=== PATIENT | male | born 1945 | race Caucasian/White ===

== ENCOUNTER 2024-09-11 15:05 | Emergency (ER) | payer SELFPAY ==
[2024-09-11 15:25] VITALS: BP 171/88
--- NOTE | 2024-09-11 16:38 | EDRN ---
Dr. Malone in room w/pt at this time discussing CT scan results at this time.
[2024-09-11 16:47] VITALS: BMI 22.1
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
--- NOTE | 2024-09-11 17:18 | CM ---
CM spoke with patient's who stated that there are no family members to assist with her care. CM spoke with patient. Patient called a friend who is able to check on during the say. Patient stated he does not feel VN is needed at this time.
Patient is now agreeable to transfer to [place]. CM updated bedside RN and ED physician Dr. Malone.
--- NOTE | 2024-09-11 17:53 | EDRN ---
Dr. Malone in w/ pt.
[2024-09-11 18:00] VITALS: BP 168/84
[2024-09-11] MEDS: DECADRON 10 MG PO (18:32)
[2024-09-11 18:41] LABS: % Basophils 0.3 % (0-2); % Eosinophils 0.2 % (0-6); % Immature Granulocytes 0.9 % (0-0.5); % Monocytes 3.8 % (1.7-9.3); % Neutrophils 90.8 % (42.2-75.2); Absolute Immature Granulocytes 0.1 10^3/uL (0-0.05); Absolute Lymphocytes 0.6 10^3/uL (1.2-3.4); Absolute Monocytes 0.5 10^3/uL (0.1-0.6); Hematocrit 43.2 % (39.0-52.0); Hemoglobin 14.8 g/dL (13.0-18.0); Mean Corp Hgb Conc. 34.3 g/dL (33.0-37.0); Mean Corpuscular Hgb 31.7 pg (27.0-31.0); Mean Corpuscular Volume 92.5 fL (80.0-94.0); Nucleated Red Blood Cells % 0 % (-); Platelet Count 218 10^3/uL (130-400); Red Blood Cell Count 4.67 10^6/uL (4.70-6.10); Red Cell Dist. Width 12.2 % (11.5-14.5); White Blood Cell Count 14.3 10^3/uL (4.8-10.8)
[2024-09-11 18:54] LABS: ALT (SGPT) 19 U/L (0-50); AST (SGOT) 27 U/L (17-59); Albumin 4.2 g/dl (3.5-5.0); Alkaline Phosphatase 76 U/L (38-126); Blood Urea Nitrogen 18 mg/dl (9-20); Calcium 9.1 mg/dl (8.4-10.2); Carbon Dioxide 30 mmol/L (22-30); Chloride 102 mmol/L (98-107); Estimated Creatinine Clearance 89 ml/min; Glucose 111 mg/dl (70-99); Potassium 4.1 mmol/L (3.5-5.1); Sodium 141 mmol/L (135-145); Total Bilirubin 0.5 mg/dl (0.2-1.3); Total Protein 6.4 g/dl (6.3-8.2); eGFR > 60.00
[2024-09-11 19:00] VITALS: BP 155/83
--- NOTE | 2024-09-11 19:34 | EDRN ---
Dr. Malone in room w/ pt at this time.
--- NOTE | 2024-09-11 19:37 | EDRN ---
Dr. Malone was in to see pt at this time.
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
[2024-09-11 20:00] VITALS: BP 166/60
--- NOTE | 2024-09-11 20:16 | EDRN ---
Attempting to call report to ICU for bed 2022 at [facility] at this time.
--- NOTE | 2024-09-11 20:24 | EDRN ---
Unable to call report as no one answered in ICU, recalling to give report at this time. Awaiting pt's nurse to come to phone at this time.
--- NOTE | 2024-09-11 20:35 | EDRN ---
Report called to Lizette Corley RN at [facility] at this time.
== END 2024-09-11 20:35 | disposition short-term general hospital (02) ==
LOC: EMR 15:05
PROVIDERS: EMERGENCY PHYSICIAN Emergency Medicine
DX: D49.6 Neoplasm of unspecified behavior of brain (principal); S61.412A Laceration without foreign body of left hand, initial encounter; R07.9 Chest pain, unspecified; V89.2XXA Person injured in unspecified motor-vehicle accident, traffic, initial encounter; Z87.891 Personal history of nicotine dependence
CPT/HCPCS: 99291; 70450; 71046; 80053; 85025; 93005

== ENCOUNTER → 2024-11-13 08:25 | Outpatient (REF) | payer OTHER, SELFPAY ==
[2024-11-13 08:48] VITALS: BP 143/81; BP_SYST 92
[2024-11-13] MEDS: ANCEF 10 IV (09:32)
[2024-11-13 10:28] VITALS: BP 140/77; BP_SYST 86
== END ==
LOC: RADI 08:25
PROVIDERS: ATTENDING PHYSICIAN Internal Medicine Hematology & Oncology; FAMILY PHYSICIAN Internal Medicine Geriatric Medicine
DX: C34.11 Malignant neoplasm of upper lobe, right bronchus or lung (principal)
CPT/HCPCS: 36561; 76937; 77001; 99152; 99153; C1788

== ENCOUNTER → 2024-12-01 11:29 | Outpatient (REF) | payer OTHER, SELFPAY ==
[2024-12-01 12:31] LABS: % Basophils 0.6 % (0-2); % Eosinophils 0.6 % (0-6); % Immature Granulocytes 1.6 % (0-0.5); % Lymphocytes 14.5 % (20.5-51.1); % Monocytes 7.4 % (1.7-9.3); % Neutrophils 75.3 % (42.2-75.2); Absolute Immature Granulocytes 0.1 10^3/uL (0-0.05); Absolute Monocytes 0.5 10^3/uL (0.1-0.6); Absolute Neutrophils 5.1 10^3/uL (1.4-6.5); Hematocrit 41.1 % (39.0-52.0); Hemoglobin 12.8 g/dL (13.0-18.0); Mean Corp Hgb Conc. 31.1 g/dL (33.0-37.0); Mean Corpuscular Hgb 29.7 pg (27.0-31.0); Mean Corpuscular Volume 95.4 fL (80.0-94.0); Mean Platelet Volume 9.3 fL (7.4-10.4); Nucleated Red Blood Cells % 0 % (-); Platelet Count 328 10^3/uL (130-400); Red Blood Cell Count 4.31 10^6/uL (4.70-6.10); Red Cell Dist. Width 14.6 % (11.5-14.5); White Blood Cell Count 6.8 10^3/uL (4.8-10.8)
[2024-12-01 13:13] LABS: ALT (SGPT) 15 U/L (0-50); AST (SGOT) 20 U/L (17-59); Albumin 3.8 g/dl (3.5-5.0); Alkaline Phosphatase 121 U/L (38-126); Blood Urea Nitrogen 15 mg/dl (9-20); Calcium 9.5 mg/dl (8.4-10.2); Carbon Dioxide 33 mmol/L (22-30); Chloride 99 mmol/L (98-107); Glucose 95 mg/dl (70-99); Sodium 139 mmol/L (135-145); Total Bilirubin 0.4 mg/dl (0.2-1.3); Total Protein 6.5 g/dl (6.3-8.2); eGFR > 60.00
[2024-12-01 13:43] LABS: TSH Reflex To Free T4 0.23 uIU/ml (0.47-4.68)
[2024-12-01 14:13] LABS: Free T4 0.91 ng/dl (0.78-2.19)
== END ==
LOC: REG 11:29
PROVIDERS: ATTENDING PHYSICIAN Internal Medicine Hematology & Oncology; FAMILY PHYSICIAN Internal Medicine
DX: C34.11 Malignant neoplasm of upper lobe, right bronchus or lung (principal); C79.31 Secondary malignant neoplasm of brain
CPT/HCPCS: 36415; 80053; 84439; 84443; 85025

== ENCOUNTER → 2024-12-22 09:59 | Outpatient (REF) | payer OTHER, SELFPAY ==
[2024-12-22 11:18] LABS: Hematocrit 37.4 % (39.0-52.0); Mean Corp Hgb Conc. 32.1 g/dL (33.0-37.0); Mean Corpuscular Hgb 30.2 pg (27.0-31.0); Mean Corpuscular Volume 94.2 fL (80.0-94.0); Platelet Count 444 10^3/uL (130-400); Red Blood Cell Count 3.97 10^6/uL (4.70-6.10); Red Cell Dist. Width 15.5 % (11.5-14.5); White Blood Cell Count 11.2 10^3/uL (4.8-10.8)
[2024-12-22 13:52] LABS: % Basophils 1.1 % (0-2); % Eosinophils 0.7 % (0-6); % Immature Granulocytes 7.4 % (0-0.5); % Lymphocytes 10.3 % (20.5-51.1); % Monocytes 7.2 % (1.7-9.3); % Neutrophils 73.3 % (42.2-75.2); Absolute Basophils 0.1 10^3/uL (0-0.2); Absolute Eosinophils 0.1 10^3/uL (0-0.7); Absolute Immature Granulocytes 0.8 10^3/uL (0-0.05); Absolute Lymphocytes 1.2 10^3/uL (1.2-3.4); Absolute Monocytes 0.8 10^3/uL (0.1-0.6); Absolute Neutrophils 8.2 10^3/uL (1.4-6.5); Nucleated Red Blood Cells % 0 % (-)
== END ==
LOC: REG 09:59
PROVIDERS: ATTENDING PHYSICIAN Internal Medicine Hematology & Oncology; FAMILY PHYSICIAN Nurse Practitioner Family
DX: C34.11 Malignant neoplasm of upper lobe, right bronchus or lung (principal); C79.31 Secondary malignant neoplasm of brain
CPT/HCPCS: 36415; 85025

== ENCOUNTER → 2024-12-23 11:44 | Outpatient (REF) | payer OTHER, SELFPAY ==
[2024-12-23 11:49] LABS: % Basophils 0.2 % (0-2); % Immature Granulocytes 5.3 % (0-0.5); % Lymphocytes 3.1 % (20.5-51.1); % Monocytes 1.1 % (1.7-9.3); % Neutrophils 90.3 % (42.2-75.2); Absolute Immature Granulocytes 0.7 10^3/uL (0-0.05); Absolute Lymphocytes 0.4 10^3/uL (1.2-3.4); Absolute Monocytes 0.2 10^3/uL (0.1-0.6); Absolute Neutrophils 12.2 10^3/uL (1.4-6.5); Hematocrit 37.2 % (39.0-52.0); Hemoglobin 12.1 g/dL (13.0-18.0); Mean Corp Hgb Conc. 32.5 g/dL (33.0-37.0); Mean Corpuscular Volume 92.1 fL (80.0-94.0); Mean Platelet Volume 8.7 fL (7.4-10.4); Platelet Count 481 10^3/uL (130-400); Red Blood Cell Count 4.04 10^6/uL (4.70-6.10); Red Cell Dist. Width 15.1 % (11.5-14.5); White Blood Cell Count 13.5 10^3/uL (4.8-10.8)
[2024-12-23 12:16] LABS: ALT (SGPT) 13 U/L (0-50); AST (SGOT) 19 U/L (17-59); Albumin 3.9 g/dl (3.5-5.0); Alkaline Phosphatase 141 U/L (38-126); Blood Urea Nitrogen 16 mg/dl (9-20); Calcium 9.2 mg/dl (8.4-10.2); Carbon Dioxide 27 mmol/L (22-30); Chloride 101 mmol/L (98-107); Glucose 132 mg/dl (70-99); Sodium 136 mmol/L (135-145); Total Bilirubin 0.2 mg/dl (0.2-1.3); Total Protein 6.3 g/dl (6.3-8.2); eGFR > 60.00
[2024-12-23 12:49] LABS: TSH Reflex To Free T4 0.17 uIU/ml (0.47-4.68)
== END ==
LOC: OIDL 11:44
PROVIDERS: ATTENDING PHYSICIAN Internal Medicine Hematology & Oncology
DX: C34.11 Malignant neoplasm of upper lobe, right bronchus or lung (principal)
CPT/HCPCS: 80053; 84439; 84443; 85025

== ENCOUNTER → 2025-01-12 10:45 | Outpatient (REF) | payer OTHER, SELFPAY ==
[2025-01-12 11:19] LABS: Hematocrit 37.7 % (39.0-52.0); Mean Corp Hgb Conc. 31.8 g/dL (33.0-37.0); Mean Corpuscular Hgb 30.3 pg (27.0-31.0); Mean Corpuscular Volume 95.2 fL (80.0-94.0); Mean Platelet Volume 9.3 fL (7.4-10.4); Platelet Count 247 10^3/uL (130-400); Red Blood Cell Count 3.96 10^6/uL (4.70-6.10); Red Cell Dist. Width 16.4 % (11.5-14.5); White Blood Cell Count 10.4 10^3/uL (4.8-10.8)
[2025-01-12 11:38] LABS: Absolute Neutrophils -Man Diff 7.3 10^3/uL (1.4-6.5); Band Neutrophils 0 % (0-3); Eosinophils 2 % (0-6); Lymphocytes 21 % (20-51); Monocytes 4 % (2-9); Myelocytes 2 % (-); Platelets Checked Yes; Segmented Neutrophils 71 % (42-75)
[2025-01-12 11:39] LABS: Anisocytosis Slight; Normal RBC Morphology No; Total Cells Counted 100
[2025-01-12 12:21] LABS: TSH Reflex To Free T4 0.49 uIU/ml (0.47-4.68)
[2025-01-12 12:31] LABS: ALT (SGPT) 14 U/L (0-50); AST (SGOT) 20 U/L (17-59); Albumin 3.9 g/dl (3.5-5.0); Alkaline Phosphatase 125 U/L (38-126); Blood Urea Nitrogen 16 mg/dl (9-20); Calcium 9.4 mg/dl (8.4-10.2); Carbon Dioxide 29 mmol/L (22-30); Chloride 101 mmol/L (98-107); Glucose 97 mg/dl (70-99); Potassium 4.5 mmol/L (3.5-5.1); Sodium 137 mmol/L (135-145); Total Bilirubin 0.5 mg/dl (0.2-1.3); Total Protein 6.3 g/dl (6.3-8.2); eGFR > 60.00
[2025-01-12 12:56] LABS: Folate > 20.0 ng/ml (2.76-20); Vitamin B12 > 1000 pg/ml (239-931)
== END ==
LOC: REG 10:45
PROVIDERS: ATTENDING PHYSICIAN Nurse Practitioner Adult Health
DX: C34.11 Malignant neoplasm of upper lobe, right bronchus or lung (principal); C79.31 Secondary malignant neoplasm of brain
CPT/HCPCS: 36415; 80053; 82607; 82746; 84443; 85025

== ENCOUNTER → 2025-02-02 09:14 | Outpatient (REF) | payer OTHER, SELFPAY ==
[2025-02-02 10:00] LABS: % Basophils 0.6 % (0-2); % Immature Granulocytes 3.7 % (0-0.5); % Lymphocytes 11.4 % (20.5-51.1); % Monocytes 8.4 % (1.7-9.3); % Neutrophils 74.9 % (42.2-75.2); Absolute Eosinophils 0.1 10^3/uL (0-0.7); Absolute Immature Granulocytes 0.3 10^3/uL (0-0.05); Absolute Lymphocytes 0.8 10^3/uL (1.2-3.4); Absolute Monocytes 0.6 10^3/uL (0.1-0.6); Absolute Neutrophils 5.1 10^3/uL (1.4-6.5); Hematocrit 37.2 % (39.0-52.0); Hemoglobin 11.9 g/dL (13.0-18.0); Mean Corpuscular Hgb 31.2 pg (27.0-31.0); Mean Corpuscular Volume 97.4 fL (80.0-94.0); Mean Platelet Volume 9.1 fL (7.4-10.4); Nucleated Red Blood Cells % 0 % (-); Platelet Count 246 10^3/uL (130-400); Red Blood Cell Count 3.82 10^6/uL (4.70-6.10); Red Cell Dist. Width 16.7 % (11.5-14.5); White Blood Cell Count 6.8 10^3/uL (4.8-10.8)
[2025-02-02 10:44] LABS: ALT (SGPT) 13 U/L (0-50); AST (SGOT) 18 U/L (17-59); Albumin 3.7 g/dl (3.5-5.0); Alkaline Phosphatase 118 U/L (38-126); Blood Urea Nitrogen 17 mg/dl (9-20); Calcium 9.8 mg/dl (8.4-10.2); Carbon Dioxide 33 mmol/L (22-30); Chloride 100 mmol/L (98-107); Glucose 82 mg/dl (70-99); Potassium 4.5 mmol/L (3.5-5.1); Sodium 139 mmol/L (135-145); Total Bilirubin 0.6 mg/dl (0.2-1.3); Total Protein 6.2 g/dl (6.3-8.2); eGFR > 60.00
[2025-02-02 11:13] LABS: TSH 0.96 uIU/ml (0.47-4.68)
== END ==
LOC: REG 09:14
PROVIDERS: ATTENDING PHYSICIAN Internal Medicine Hematology & Oncology; FAMILY PHYSICIAN Internal Medicine
DX: C34.11 Malignant neoplasm of upper lobe, right bronchus or lung (principal); C79.31 Secondary malignant neoplasm of brain
CPT/HCPCS: 36415; 80053; 84443; 85025

== ENCOUNTER → 2025-02-25 10:51 | Outpatient (REF) | payer OTHER, SELFPAY ==
[2025-02-25 09:37] LABS: % Basophils 0.4 % (0-2); % Eosinophils 0.7 % (0-6); % Immature Granulocytes 1.9 % (0-0.5); % Lymphocytes 9.8 % (20.5-51.1); % Neutrophils 77.2 % (42.2-75.2); Absolute Eosinophils 0.1 10^3/uL (0-0.7); Absolute Immature Granulocytes 0.1 10^3/uL (0-0.05); Absolute Lymphocytes 0.7 10^3/uL (1.2-3.4); Absolute Monocytes 0.7 10^3/uL (0.1-0.6); Absolute Neutrophils 5.7 10^3/uL (1.4-6.5); Hematocrit 34.9 % (39.0-52.0); Hemoglobin 11.1 g/dL (13.0-18.0); Mean Corp Hgb Conc. 31.8 g/dL (33.0-37.0); Mean Corpuscular Hgb 30.7 pg (27.0-31.0); Mean Corpuscular Volume 96.4 fL (80.0-94.0); Mean Platelet Volume 8.7 fL (7.4-10.4); Platelet Count 224 10^3/uL (130-400); Red Blood Cell Count 3.62 10^6/uL (4.70-6.10); Red Cell Dist. Width 15.5 % (11.5-14.5); White Blood Cell Count 7.3 10^3/uL (4.8-10.8)
[2025-02-25 10:41] LABS: ALT (SGPT) 14 U/L (0-50); AST (SGOT) 17 U/L (17-59); Albumin 3.5 g/dl (3.5-5.0); Alkaline Phosphatase 124 U/L (38-126); Blood Urea Nitrogen 11 mg/dl (9-20); Calcium 9.3 mg/dl (8.4-10.2); Carbon Dioxide 32 mmol/L (22-30); Chloride 103 mmol/L (98-107); Glucose 93 mg/dl (70-99); Sodium 142 mmol/L (135-145); Total Bilirubin 0.4 mg/dl (0.2-1.3); Total Protein 5.9 g/dl (6.3-8.2); eGFR > 60.00
[2025-02-25 11:14] LABS: Cortisol, Random 19.7 ug/dl; TSH Reflex To Free T4 1.28 uIU/ml (0.47-4.68)
== END ==
LOC: OIDL 10:51
PROVIDERS: ATTENDING PHYSICIAN Internal Medicine Hematology & Oncology
DX: C34.11 Malignant neoplasm of upper lobe, right bronchus or lung (principal); C79.31 Secondary malignant neoplasm of brain
CPT/HCPCS: 80053; 82533; 84443; 85025

== ENCOUNTER → 2025-03-16 09:36 | Outpatient (REF) | payer OTHER, SELFPAY ==
[2025-03-16 10:21] LABS: % Basophils 0.4 % (0-2); % Eosinophils 2.4 % (0-6); % Lymphocytes 16.4 % (20.5-51.1); % Monocytes 9.1 % (1.7-9.3); % Neutrophils 70.7 % (42.2-75.2); Absolute Eosinophils 0.1 10^3/uL (0-0.7); Absolute Immature Granulocytes 0.1 10^3/uL (0-0.05); Absolute Lymphocytes 0.8 10^3/uL (1.2-3.4); Absolute Monocytes 0.5 10^3/uL (0.1-0.6); Absolute Neutrophils 3.6 10^3/uL (1.4-6.5); Hematocrit 38.5 % (39.0-52.0); Hemoglobin 12.1 g/dL (13.0-18.0); Mean Corp Hgb Conc. 31.4 g/dL (33.0-37.0); Mean Corpuscular Hgb 30.4 pg (27.0-31.0); Mean Corpuscular Volume 96.7 fL (80.0-94.0); Mean Platelet Volume 9.3 fL (7.4-10.4); Nucleated Red Blood Cells % 0 % (-); Platelet Count 171 10^3/uL (130-400); Red Blood Cell Count 3.98 10^6/uL (4.70-6.10); Red Cell Dist. Width 14.1 % (11.5-14.5); White Blood Cell Count 5.1 10^3/uL (4.8-10.8)
[2025-03-16 10:51] LABS: ALT (SGPT) 12 U/L (0-50); AST (SGOT) 19 U/L (17-59); Albumin 4.2 g/dl (3.5-5.0); Alkaline Phosphatase 99 U/L (38-126); Blood Urea Nitrogen 16 mg/dl (9-20); Calcium 9.7 mg/dl (8.4-10.2); Carbon Dioxide 30 mmol/L (22-30); Chloride 104 mmol/L (98-107); Glucose 78 mg/dl (70-99); Potassium 5.2 mmol/L (3.5-5.1); Sodium 144 mmol/L (135-145); Total Bilirubin 0.6 mg/dl (0.2-1.3); Total Protein 6.5 g/dl (6.3-8.2); eGFR > 60.00
[2025-03-16 11:19] LABS: TSH 1.04 uIU/ml (0.47-4.68)
== END ==
LOC: REG 09:36
PROVIDERS: ATTENDING PHYSICIAN Internal Medicine Hematology & Oncology; FAMILY PHYSICIAN Internal Medicine
DX: C34.11 Malignant neoplasm of upper lobe, right bronchus or lung (principal); C79.31 Secondary malignant neoplasm of brain
CPT/HCPCS: 36415; 80053; 84443; 85025

== ENCOUNTER 2025-04-05 19:52 | Inpatient (IN) | payer OTHER, SELFPAY ==
[2025-04-05] VITALS (22 sets, daily range): BP systolic 150–185; BP diastolic 76–101
--- NOTE | 2025-04-05 16:11 | ED.GENMED ---
History of Present Illness
General
Chief Complaint: Musculo-Skeletal Complaint
Source: patient
Exam Limitations: none
Time Seen by Provider: 04/05/25 16:02
Nursing documentation reviewed up to this point in time: agreed with
History of Present Illness
History of Present Illness:
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 Patient states he was walking out of his house and steadying himself on the railing
with his left arm when he heard a sudden pop/snap. He reports immediate excruciating pain in left upper arm. He denies any other injury sustained. He did not fall or hit his head. He denies any numbness/tingling in left arm or hand.
Patient initially drove himself to the hospital as he was scheduled to receive his last radiation treatment. However he was then sent to the emergency department for further evaluation.
Past History
Past History
ED Past Medical History: None
ED Past Surgical History: None
Social History
Tobacco: Former smoker
Alcohol: Occasional
Personal:
Living: with family
Employment: Retired
Review of Systems
Review of Systems
Allergies reviewed?: Yes
All Other Systems: ROS reviewed and negative except as documented in HPI and ROS
Phy Exam
Physical Exam
Physical Exam:
Vitals: Hypertensive, otherwise vital signs stable. Afebrile
General: Patient is moderately uncomfortable due to pain.
Skin: Warm and dry, no rashes or lesions
Head: Normocephalic, atraumatic
Throat: Protecting airway
Neck: Normal ROM, no cervical spine tenderness
Cardiac: Regular rate
Pulm: No apparent respiratory distress
Abdomen: Nondistended
Extremities: Edema and point tenderness of left upper arm around midshaft of humerus. No bony tenderness or deformity of left shoulder. No bony tenderness of left forearm or left wrist. 2+ palpable left radial and left brachial pulse. Capillary
refill within normal limits. Sensation intact.
Neuro: Grossly intact
Psychiatric: Normal affect.
Course
Orders/Labs/Results
Orders:
Orders
04/05/25 Dinner
Regular
04/05/25 16:07
Humerus, Left 2 Views [CR Humerus - Left Min 2 Views*] Urgent
Comment: lung CA w/ mets to bone
Reason For Exam: Trauma
04/05/25 16:44
HYDROmorphone [Dilaudid] 0.5 mg IV NOW STA
04/05/25 17:17
HYDROmorphone [Dilaudid] 0.5 mg IV NOW STA
04/05/25 17:18
Electrocardiogram (*1) Urgent
Reason for Study: PreOp
EKG- Treatment ONCE
04/05/25 18:10
Ketamine [Ketalar] 70 mg IV NOW STA
04/05/25 18:14
Sling Left-Treatment ONCE
04/05/25 18:35
Admit/Transfer Patient As Directed
Co-Sign Provider:
Level of Care: Inpatient admission
Assign to:: Medical/Surgical
Physician / Group: [email or web address]
Diagnosis: Pathologic left mid shaft humerus fracture
Reason for Hospitalization: Pathologic left mid shaft humerus fracture
Expected length of stay greater than two midnights?: Yes
ELOS- Estimated Length of Stay in days: 2
I certify the patient meets the requirements for IP care: Yes
04/05/25 18:37
Code Status As Directed
Resuscitation Status: Full Code
04/05/25 21:10
HYDROmorphone [Dilaudid] 0.25 mg IV Q3HPRN PRN
04/05/25 21:54
Complete Blood Count/With Diff Urgent
Comprehensive Metabolic Panel Urgent
04/05/25 22:39
Docusate Sodium [Colace] 100 mg PO BID
Levetiracetam [Keppra] 500 mg PO BID
Magnesium Hydroxide [Milk of Magnesia] 30 ml PO DAILYPRN PRN
Oxycodone [Roxicodone] 5 mg PO Q4HPRN PRN
Sennosides [Senokot] 17.2 mg PO BID
Tamsulosin [Flomax] 0.4 mg PO DAILYPRN PRN
04/05/25 22:39
ORTHOPEDIC CONSULT Routine
Consulting Provider: Jerald Kennedy
Was physician already notified: Yes
Reason for consult: Pathologic left mid shaft humerus fracture
Activity As Directed
Activity Level: With Assistance
Bladder Scan As Directed
Follow Bladder Retention/Intermittent Cath Algorithm?: Yes
PRN if no void in __ hours: 6
Comment: if not voiding 6 hrs upon arrival to floor, bladder scan & follow algorithm
Intake/ Output As Directed
Frequency: Per unit guidelines
Pneumatic Compression Sleeves As Directed
Type: Knee high
Straight Cath As Directed
Frequency: Per Retention Algorithm
Additional Instructions: straight cath as needed per acute urinary retention algorithm for 24 hrs
Additional Instructions: for bladder scan greater than 400 mL
Vital Signs As Directed
Frequency: Per unit guidelines
DX Deep Vein Thrombosis Video Routine
04/06/25 00:00
Acetaminophen [Tylenol] 650 mg PO Q4HWA
04/06/25 Breakfast
NPO
Allow oral meds: Yes
Allow clear liquids: No
NPO with Ice Chips: Yes
Vital Signs
Initial and Last Documented VS:
Initial Vital Signs
BP
158/91
04/05/25 15:45
Last Documented Vital Signs
Temp Pulse Resp BP Pulse Ox
98.2 F 105 18 150/80 93
04/05/25 19:20 04/05/25 21:15 04/05/25 21:15 04/05/25 21:00 04/05/25 21:15
Procedures
Moderate Sedation
ASA Risk Score: Class II
Chart and allergies reviewed: Yes
Consent for anesthesia obtained: Yes
Time out completed (validating right patient & procedure): Yes
Moderate Sedation Start Time(when first medication is given): 18:34
History of difficult intubation: No
Airway free of obstruction: Yes
Patient has a gag reflex: Yes
Patient is able to open mouth: Yes
Patient has no dentures: Yes
Patient has no loose teeth: Yes
Medication administered by Provider during Moderate Sedation: Other (IV ketamine)
Total dose administered: 70
Time drug administered: 18:34
Moderate Sedation Procedure End Time: 18:49
Comment: Moderate sedation completed by Jeremy Love MD
Splinting/Sling Placement
Left Upper Arm:
Procedure completed by: Jayne Silverio PA-C
Pre-splint extermity exam: neurovascular intact
Type of splint: other (Coaptation splint)
Splint material: fiberglass
Splint checked by provider?: Yes
Type of sling: sling fitted
Normal distal neurovascular exam?: Yes
Additional information:
Left coaptation splint applied under moderate sedation. Patient tolerated procedure well
MDM/Problems Addressed
Differential Diagnosis Includes:
Not limited to: Pathologic fracture of humerus, shoulder dislocation, bicep rupture, etc.
MDM/Problems Addressed:
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 Patient gripping railing at the time with no obvious traumatic event. No other injuries.
Patient hypertensive with otherwise stable vital signs. Physical exam as above. Patient has obvious swelling and tenderness to middle of left upper arm. No bony tenderness of left shoulder, left elbow, or left wrist. Patient has normal sensation
in left upper extremity with 2+ palpable radial radial pulses. Normal capillary refill. Very limited range of motion secondary to pain. No evidence of other traumatic injuries. Given known metastatic disease�concern for possible pathologic
fracture. Will obtain x-ray of humerus. Will treat pain.
Update: Humerus x-ray shows suspected pathologic midshaft humerus fracture of left arm. Case discussed with orthopedics, Dr. Kennedy. Patient will require surgical intervention either tomorrow or outpatient. Zari with patient who would prefer to
be admitted for operation tomorrow. Patient will require coaptation splint placement. Patient remains in significant pain and concerned that he will not tolerate splint placement. Ultimately�after discussion with attending physician�decision was
made to perform moderate sedation for splint placement and analgesia. Verbal consent obtained by patient and signed in the chart for moderate sedation with IV ketamine and splint placement.
Moderate sedation performed by attending physician, Dr. Jeremy Love as written in procedure note. Coaptation splint applied along with shoulder sling. Patient tolerated procedure well. He has normal neurovascular exam in left upper extremity
following splint placement. Will admit patient to hospital tonight with plan for OR tomorrow with orthopedics. Patient accepted to hospitalist service in stable condition.
Chronic conditions affecting care:
Metastatic lung cancer to bone
Acute Exacerbation and/or Progression of Chronic Illness:
Pathologic fracture of left humerus
*Radiology
Radiology exam reviewed: preliminary read by ED provider (Left humerus x-ray reviewed by me-left midshaft humerus fracture) and radiology read reviewed
*Pulse Oximetry
Patient hypoxic: no
*EKG
Interpreted by ED Provider?: Yes
EKG Intrepretation Date: 04/05/25
Interpretation: abnormal
Comparison EKG: changes noted
Heart Rate: 92
Rate: normal
Rhythm: sinus
[place]: normal axis
QRS Pattern: normal QRS and right bundle branch block
Ischemia: non-specific ST changes
*Critical Care Note
Total Time (30-74mins, 75-104mins- exclusive of procedures): Not Applicable
Patient Management
Discussion with other providers: Hospitalist and Lead Pony Rider (Case discussed with orthopedics)
Escalation/DeEscalation of care consider admission/obs:
Admit�plan for OR tomorrow with Ortho
ED Attending Note
-
Portions of this chart may have been created with voice recognition software.� Occasional wrong word or��sound alike� substitutions may have occurred due to the inherent limitations of voice recognition software.
Discharge Plan
Departure
Patient Disposition: Admit
Date of Disposition: 04/05/25
Time of Disposition: 17:49
Presentation/result/management discussed w/ accepting MD/DO: Hospitalist
Discharge Problem:
Pathological fracture of left humerus due to neoplastic disease
Interventions
Interventions:
*Risk Screen - Suicide Last Done: 04/05/25 15:50
*General Assessment Last Done: 04/05/25 15:50
*Neglect/Abuse Screening Last Done: 04/05/25 15:50
*ED- Fall Risk Assessment Last Done: 04/05/25 15:50
*ED COVID-19 Vaccine History Last Done: 04/05/25 15:50
ED-Musculoskeletal Assessment Last Done: 04/05/25 16:03
[2025-04-05] MEDS: DILAUDID 0.5 MG IV (16:48)
[2025-04-05] MEDS: KETALAR 70 MG IV (18:18)
--- NOTE | 2025-04-05 18:27 | HPS.HSE ---
Family Physician
-
Family Physician: Brian Liu
Chief Complaint
-
excruciating pain in left upper arm.
History of Present Illness
HPI
79M HX metastatic lung CA to brain/left humerus seen at ER
- he was walking out of his house and steadying himself on the railing with his left arm when he heard a sudden pop/snap.
- reports immediate excruciating pain in left upper arm.
- denies any other injury sustained.
- did not fall or hit his head.
- denies any numbness/tingling in left arm or hand.
- Patient initially drove himself to the hospital as he was scheduled to receive his last radiation treatment.
- However he was then sent to the emergency department for further evaluation.
Medical History
Past Medical History
Past Medical History: Reports Cancer (HX metastatic lung CA to brain/left humerus )
Past Surgical History: Reports None
Social History
Tobacco: Former Smoker
Alcohol: None
Personal:
Family History
Family History: Not pertinent
Allergies / Home Medications
Allergies reflects when Allergies were last updated in [employer].
Home Medications with original date entered in [employer]
Allergy/Medication List:
Allergies
Allergy/AdvReac Type Severity Reaction Status Date / Time
No Known Allergies Allergy Verified 04/05/25 15:46
Home Medications
levetiracetam 500 mg tablet 500 mg PO BID 11/13/24
acetaminophen 325 mg tablet (Tylenol) 650 mg PO TIDPRN PRN mild pain 04/05/25
folic acid 1 mg tablet 1 mg PO DAILY 04/05/25
Review of Systems
-
Constitutional: Reports No Symptoms
EENT: Reports No Symptoms
Respiratory: Reports No Symptoms
Cardiac: Reports No Symptoms
Abdomen/GI: Reports No Symptoms
: Reports No Symptoms
Musculoskeletal: Reports See HPI
Skin: Reports No Symptoms
Neurological: Reports No Symptoms
Endocrine: Reports No Symptoms
Hematologic/Lymphatic: Reports No Symptoms
Psych: Reports No Symptoms
Physical Exam
Vital Signs
Vital Signs
Temp Pulse Resp BP Pulse Ox
97.8 F 83 18 158/91 96
04/05/25 15:50 04/05/25 15:50 04/05/25 15:50 04/05/25 15:50 04/05/25 15:50
Physical Exam
General: Well Developed, Well Nourished and No Apparent Distress
HEENT: NormoCephalic, Moist mucous membranes and Atraumatic
Respiratory: Clear
Cardiac: S1/S2 and Regular Rhythm; No Murmur or Rub
GI: Soft, Non Tender, Non Distended and Normal Bowel Sounds; No Organomegaly
Rectal: Deferred by Provider
Musculoskeletal: Other (Edema and point tenderness of left upper arm around midshaft of humerus. No bony tenderness or deformity of left shoulder. No bony tenderness of left forearm or left wrist. 2+ palpable left radial and left brachial pulse.
Capillary refill within normal limits. Sensation intact.)
Skin: No Rash
Neuro: Nonfocal/grossly intact
Laboratory Results
-
pending
Data Reviewed
-
Diagnostic Radiology: Report Reviewed by me
Lab Data: Other (pending admission labs )
Impression/Plan
-
Vital Signs
Temp Pulse Resp BP Pulse Ox
97.8 F 83 18 158/91 96
04/05/25 15:50 04/05/25 15:50 04/05/25 15:50 04/05/25 15:50 04/05/25 15:50
Admission Data: pending
Lt Humerus XR
Acute, oblique fracture through the midshaft of the left humerus with mild lateral displacement and posterior angulation of the distal fracture fragment. This is consistent with a pathologic fracture given the presence of a hypermetabolic lesion at
this location on the recent PET/CT in the setting of metastatic lung cancer.
NO PRIOR hospitalist admission:
ASSESSMENT & PLAN
Pathologic left mid shaft humerus fracture
- s/p ketamine and splint Lt UEx at ER
- ER Discussed w/ ortho, Dr. Kennedy.
- Plan for OR tomorrow.
- NPO after MN
- PRN narcotic analgesia
- Ortho consulted
known lung CA w/ mets to brain and bone
- on Sz prophylactic Keppra
DVT Px: SCD
Full code
IP MS
[2025-04-05] MEDS: DILAUDID 0.25 MG IV (21:49)
[2025-04-05 22:07] LABS: % Basophils 0.4 % (0-2); % Eosinophils 0.1 % (0-6); % Immature Granulocytes 0.4 % (0-0.5); % Lymphocytes 5.9 % (20.5-51.1); % Monocytes 6.1 % (1.7-9.3); % Neutrophils 87.1 % (42.2-75.2); Absolute Lymphocytes 0.6 10^3/uL (1.2-3.4); Absolute Monocytes 0.7 10^3/uL (0.1-0.6); Absolute Neutrophils 9.3 10^3/uL (1.4-6.5); Hematocrit 38.6 % (39.0-52.0); Hemoglobin 12.6 g/dL (13.0-18.0); Mean Corp Hgb Conc. 32.6 g/dL (33.0-37.0); Mean Corpuscular Hgb 30.2 pg (27.0-31.0); Mean Corpuscular Volume 92.6 fL (80.0-94.0); Mean Platelet Volume 9.5 fL (7.4-10.4); Nucleated Red Blood Cells % 0 % (-); Platelet Count 185 10^3/uL (130-400); Red Blood Cell Count 4.17 10^6/uL (4.70-6.10); Red Cell Dist. Width 12.8 % (11.5-14.5); White Blood Cell Count 10.6 10^3/uL (4.8-10.8)
[2025-04-05 22:33] LABS: ALT (SGPT) 12 U/L (0-50); AST (SGOT) 18 U/L (17-59); Albumin 3.8 g/dl (3.5-5.0); Alkaline Phosphatase 105 U/L (38-126); Blood Urea Nitrogen 14 mg/dl (9-20); Calcium 9.4 mg/dl (8.4-10.2); Carbon Dioxide 28 mmol/L (22-30); Chloride 108 mmol/L (98-107); Estimated Creatinine Clearance 106 ml/min; Glucose 135 mg/dl (70-99); Sodium 140 mmol/L (135-145); Total Bilirubin 0.7 mg/dl (0.2-1.3); Total Protein 6.3 g/dl (6.3-8.2); eGFR > 60.00
[2025-04-06] VITALS (14 sets, daily range): BP systolic 112–157; BP diastolic 61–80; BMI 22.1
[2025-04-06] MEDS: COLACE 100 MG PO (00:50)
[2025-04-06] MEDS: KEPPRA 500 MG PO ×3 (00:50→20:37)
[2025-04-06] MEDS: TYLENOL 650 MG PO ×5 (00:51→20:37)
[2025-04-06] MEDS: DILAUDID 0.25 MG IV ×3 (01:10→09:36)
--- NOTE | 2025-04-06 04:46 | PTCARENOTE ---
Pt admitted from ED. AAOx3, continues with pain to left upper arm. Tylenol scheduled atc. R subq port C/D/I . Bed in lowest position and call karan wallis.
--- NOTE | 2025-04-06 07:32 | CON.ORTHO ---
Consultation
-
Date/Time Consultation Requested: 04/05/25
Date/Time Consultation Performed: 04/06/25 @7:25am
Requesting Provider: ER Provider
Performing Provider: Constance Mendoza PA-C
Reason for Consultation: left humerus fracture
Consultation - Orthopedics
History
HPI: 79yo male admitted to [facility] for left arm pain. He was walking out of his house yesterday afternoon when he grabbed the railing and felt a pop in his arm. He was on his way to his radiation treatment but was sent to the ER for
further evaluation. He reports that he had significant pain in the left arm however does feel more comfortable with the splint in place. He is right hand dominant.
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
PAST SURGICAL HISTORY: port placement
SOCIAL HISTORY: former smoker, occasional alcohol. ambulates without assistive device
FAMILY HISTORY: non contributory
REVIEW OF SYSTEMS: 12 point review of systems obtained and negative except those mentioned in the HPI
Allergies / Home Medications
Allergy/AdvReac Type Severity Reaction Status Date / Time
No Known Allergies Allergy Verified 04/05/25 15:46
�Medication �Instructions �Recorded
levetiracetam 500 mg tablet 500 mg PO BID 11/13/24
acetaminophen 325 mg tablet 650 mg PO TIDPRN PRN mild pain 04/05/25
(Tylenol)
folic acid 1 mg tablet 1 mg PO DAILY 04/05/25
Vital Signs / Lab Results
Temp Pulse Resp BP Pulse Ox
98.2 F 102 18 157/80 93
04/06/25 01:33 04/06/25 01:33 04/06/25 01:33 04/06/25 01:33 04/06/25 01:33
04/05/25 21:54
04/05/25 21:54
RADIOGRAPHIC FINDINGS:
Xrays left humerus reveal an oblique fracture through the midshaft of the left humerus with mild lateral displacement and posterior angulation of the distal fracture fragment. This is consistent with a pathologic fracture given the presence of a
hypermetabolic lesion at this location on the recent PET/CT in the setting of metastatic lung cancer. The shoulder and elbow joint alignments are maintained.
PHYSICAL EXAM:
General: no scute distress
HEENT: NCAT, sclera anicteric, normal hearing
Heart: No JVD
Lungs: normal work of breathing on room air
MSK: Directed exam of left arm shows splint and sling in place. full ROM of wrist and hand. sensation intact to light touch. cap refill <2secs
Assessment / Plan
ASSESSMENT/PLAN:
Left pathologic humeral shaft fracture
--Recommend operative fixation
--Will plan for OR later today for ORIF left humerus under the direction of Dr. Phoenix or Dr. Carroll
--Consent obtained and placed on patient's chart
--Remain NPO
--Ancef formulation chemist to OR
--Continue with pain management as needed
--Maintain splint and sling for now
--Orthopedics will continue to follow
[2025-04-06] MEDS: COLACE PO ×2 (08:02→20:37)
--- NOTE | 2025-04-06 09:35 | W.PN.HOSP.TC ---
Today's Communication/Plan
-
see plan
Assessment / Plan
Assessment / Plan
Gen: NAD, AAOx3.
Eyes: EOMI, PERRLA, no scleral icterus.
Neck: supple.
CV: RRR, +S1/S2, no m/r/g.
Resp: CTAB, no rales, wheezes, or rhonchi.
Abd: +BS, soft, NT, ND
Skin: No rashes.
Neuro: CN 2-12 intact, non-focal.
Psych: Normal mood and affect.
L Humerus X-ray: Acute, oblique fracture through the midshaft of the left humerus with mild lateral displacement and posterior angulation of the distal fracture fragment. This is consistent with a pathologic fracture given the presence of a
hypermetabolic lesion at this location on the recent PET/CT in the setting of metastatic lung cancer.
Pathologic left mid shaft humerus fracture:
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
-s/p ketamine and splint LUE in ER
-ER Discussed w/Dr. Kennedy, plan for OR today
-pain control
FULL/SCDs
Anticipated Discharge: Within 24 hours
Subjective/Interval History
-
Date of Service: April 06, 2025
No new complaints.
Objective Data
-
Labs:
Laboratory Results
04/05/25
21:54
WBC 10.6
Hgb 12.6 L
Hct 38.6 L
Plt Count 185
Sodium 140
Potassium 4.0
Chloride 108 H
Carbon Dioxide 28
BUN 14
Creatinine 0.5 L
Glucose 135 H
Calcium 9.4
Total Bilirubin 0.7
AST 18
ALT 12
Alkaline Phosphatase 105
Vital Signs:
Vital Signs
Temp Pulse Resp BP Pulse Ox
98.6 F 86 14 133/73 94
04/06/25 07:35 04/06/25 07:35 04/06/25 07:35 04/06/25 07:35 04/06/25 07:35
I&O
04/05/25 04/06/25 04/07/25
06:59 06:59 06:59
Output Total 250 / 250
Balance -250 / -250
[2025-04-06] MEDS: TYLENOL PO ×2 (12:27→23:58)
--- NOTE | 2025-04-06 15:26 | CM ---
Patient off floor for surgery, fx humerus.
--- NOTE | 2025-04-06 16:39 | PTCARENOTE ---
1635 Pt received from PACU, AAOX3. Personal items and call light within reach. O2 @ 3 Liters.
[2025-04-06] MEDS: NSS 1000 IV (16:41)
[2025-04-06] MEDS: LOVENOX 40 MG SC (17:00)
--- NOTE | 2025-04-06 20:00 | PTCARENOTE ---
Pt took off NC and didn't want to wear it. SaO2 88% on RA. Went in and explained to the pt the importance of keeping SaO2 >92% and that the NC would likely be temporary post-op and that we'd wean it off as soon as possible. Pt agreeable to putting
it back on. SaO2 95% on 2L NC.
[2025-04-06] MEDS: ANCEF 5 IV (21:26)
--- NOTE | 2025-04-07 02:50 | PTCARENOTE ---
Pt took oxygen off and asked to walk to bathroom. Assisted pt to bathroom. When pt got back to bed, pulse ox read 77% on RA, slowly got back to 81%. Placed on 2L NC, SaO2 94%. Pt with coarse, junky cough. Encouraged IS use and getting OOB during the
day today.
[2025-04-07 03:00] VITALS: BP 114/63
[2025-04-07] MEDS: TYLENOL 650 MG PO ×4 (04:37→15:19)
[2025-04-07] MEDS: NSS 1000 IV (04:37)
[2025-04-07 05:33] LABS: Hematocrit 35.2 % (39.0-52.0); Hemoglobin 11.3 g/dL (13.0-18.0)
[2025-04-07] MEDS: ANCEF 5 IV (05:35)
[2025-04-07] MEDS: ROXICODONE 10 MG PO ×2 (05:35→10:40)
[2025-04-07 06:03] LABS: Blood Urea Nitrogen 13 mg/dl (9-20); Calcium 8.9 mg/dl (8.4-10.2); Carbon Dioxide 32 mmol/L (22-30); Chloride 107 mmol/L (98-107); Estimated Creatinine Clearance 104 ml/min; Glucose 131 mg/dl (70-99); Potassium 4.5 mmol/L (3.5-5.1); Sodium 140 mmol/L (135-145); eGFR > 60.00
[2025-04-07 07:31] VITALS: BP 122/59
[2025-04-07] MEDS: KEPPRA 500 MG PO (08:16)
[2025-04-07] MEDS: COLACE PO (08:17)
--- NOTE | 2025-04-07 08:17 | W.PN.ORTHO ---
Today's Communication / Plan
-
Sling left upper extremity
Nonweightbearing left upper extremity
PT/OT
Gentle range of motion fingers, wrist and elbow only
Lovenox for DVT prophylaxis
Skin clip removal 2 weeks postop
Follow-up with orthopedics 4 weeks postop for x-ray
Assessment
.
Distal Motor Intact: Yes
Dressing:
Clean, dry and intact.
Plan
.
Surgery / Date: L humerus IMN 04/06 Ritting
DVT Prophylaxis: Lovenox
Activity:
Out of bed.
PT/OT
Subjective
.
.:
Patient resting comfortably.
Vital Signs and Labs
.
Vital Signs and Labs:
Lab Results
04/07/25 05:18
04/07/25 05:18
Temp Pulse Resp BP Pulse Ox
97.6 F 74 14 122/59 97
04/07/25 07:31 04/07/25 07:31 04/07/25 07:31 04/07/25 07:31 04/07/25 07:31
[2025-04-07 10:09] VITALS: BP 112/68; PULSE 82; O2SAT 99
--- NOTE | 2025-04-07 10:10 | W.PN.HOSP.TC ---
Addendum entered and electronically signed by Thai Hooper MD 04/07/25 13:54:
Patient is in need of oxygen on exertion due to pulse oximetry of 90% on room air at rest; 88% on room air with exertion.
Patient was placed on 2L O2 via nasal cannula with saturation of 92%. Oxygen will help to improve hypoxemia.
Patient is mobile within the home.
Oxygen will improve the patient's symptoms.
Addendum entered and electronically signed by Thai Hooper MD 04/07/25 13:52:
.
Addendum entered and electronically signed by Thai Hooper MD 04/07/25 13:36:
Total time spent on d/c = 50 min. This included today's physical exam, progress note, review of laboratory and diagnostic data, preparation of discharge documents and prescriptions, and discussions about the pt's hospital course and discharge plan
with the patient and other senior medical writer involved in the patient's care.
Addendum entered and electronically signed by Thai Hooper MD 04/07/25 11:57:
.
Original Note:
Today's Communication/Plan
-
d/c
Assessment / Plan
Assessment / Plan
Gen: NAD, AAOx3.
Eyes: EOMI, PERRLA, no scleral icterus.
Neck: supple.
CV: remains RRR, +S1/S2, no m/r/g.
Resp: remains CTAB, no rales, wheezes, or rhonchi.
Abd: remains +BS, soft, NT, ND
Skin: No rashes.
Neuro: CN 2-12 intact, non-focal.
Psych: Normal mood and affect.
L Humerus X-ray: Acute, oblique fracture through the midshaft of the left humerus with mild lateral displacement and posterior angulation of the distal fracture fragment. This is consistent with a pathologic fracture given the presence of a
hypermetabolic lesion at this location on the recent PET/CT in the setting of metastatic lung cancer.
Pathologic left mid shaft humerus fracture:
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
-s/p ketamine and splint LUE in ER
-s/p L humeral nail on 04/06/25
-pain control
FULL/SCDs
Medically cleared for d/c, case management aware.
Anticipated Discharge: Today
Subjective/Interval History
-
Date of Service: April 07, 2025
No new complaints.
Objective Data
-
Labs:
Laboratory Results
04/07/25
05:18
Hgb 11.3 L
Hct 35.2 L
Sodium 140
Potassium 4.5
Chloride 107
Carbon Dioxide 32 H
BUN 13
Creatinine 0.5 L
Glucose 131 H
Calcium 8.9
Vital Signs:
Vital Signs
Temp Pulse Resp BP Pulse Ox
97.6 F 74 14 122/59 92
04/07/25 07:31 04/07/25 07:31 04/07/25 07:31 04/07/25 07:31 04/07/25 09:41
I&O
04/06/25 04/07/25 04/08/25
06:59 06:59 06:59
Intake Total 1010 / 1010
Output Total 250 / 250 1325 / 1325
Balance -250 / -250 -315 / -315
[2025-04-07 10:12] VITALS: BP 112/68; PULSE 84; O2SAT 99
--- NOTE | 2025-04-07 11:03 | CM ---
Addendum entered by Gloria Coburn RN 04/07/25 13:54:
As per Resp eval pt qualifies for oxygen at home. Pt said his has [employer] for her oxygen He requested [employer] . Jenn FISHMAN liaison assisted with setting up oxygen for home.
RACHEL Home with [facility] and [employer] oxygen
Original Note:
Alert awake oriented patient who lives with his Tisha in a 2 story home with 2 step to enter and bed and bathroom on first floor. 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
Liaison aware Jenn.His friend Emi will drive him home.He agrees with dc today. He is currently on oxygen 2 liters Pox 99%. Requested home oxygen test.
Pt [facility] hx / No SNF history
Pharmacy [facility]
PCP DR Michaud
PLAN Home [facility] for home oxygen needs
--- NOTE | 2025-04-07 13:36 | W.DCSUMMARY ---
Discharge Summary
Discharge Data
Date of Admission: 04/05/25
Date of Discharge: 04/07/25
-
Pending Results: No
Hospital Course
Primary diagnoses:
Pathologic left mid shaft humerus fracture s/p L humeral nail on 04/06/25
Secondary diagnoses:
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
Consultants:
Orthopedics
Imaging:
L Humerus X-ray: Acute, oblique fracture through the midshaft of the left humerus with mild lateral displacement and posterior angulation of the distal fracture fragment. This is consistent with a pathologic fracture given the presence of a
hypermetabolic lesion at this location on the recent PET/CT in the setting of metastatic lung cancer.
Hospital course: 79-year-old male who presentedwith a chief complaint of left upper arm pain as outlined in the H&P on admission. The patient was found to have a pathologic left mid shaft humerus fracture. He received ketamine and a splint to the
LUE in ER. He was seen in consultation by orthopedics and had a L humeral nail on 04/06/25 in the OR. He is being discharged in medically stable condition
Discharge Plan
-
Patient Disposition: Home with Home Care
Discharge Diagnosis/Procedures: Pathologic left mid shaft humerus fracture s/p L humeral nail on 04/06/25
Condition: Good
Diet: No restrictions
Additional Activity: Sling and nonweightbearing left arm (range of motion finger, wrist and elbow)
Driving Restrictions: Not until seen by your Dr
Bathing Restrictions: OK to Shower
Wound Care: Leave dressing in place
Referrals:
Brian Liu MD [Family Provider] - in less than 1 week
Colton Phoenix MD [Active] - 04/20/25 (Make follow up to see Dr Phoenix 2 weeks post-op)
Prescriptions:
New
sennosides [Amanda-dahiana] 8.6 mg Tablet
17.2 mg PO BID Qty: 0 0RF
docusate sodium 100 mg Capsule
100 mg PO BID Qty: 0 0RF
Continued
levetiracetam 500 mg Tablet
500 mg PO BID
acetaminophen [Tylenol] 325 mg Tablet
650 mg PO TIDPRN PRN (Reason: mild pain)
folic acid 1 mg Tablet
1 mg PO DAILY
Discharge Orders:
Discharge Patient (As Directed); Ordered 04/07/25
Ordered By: Thai Hooper
Discharge Date and Time
Print Language: PAKISTANI
--- NOTE | 2025-04-07 14:23 | VNURNOTE ---
Home Health Liaison met with patient at bedside to discuss [facility] nurse/therapy, visits, schedule and homebound status. Patient is agreeable and understands that visits at home will be 2-3 x per week to assess and teach medical management. Patient is
aware that [facility] will contact them for start of care in 1-2 days after discharge from . Patient qualified for home 02 w/exertion. Rx, clinicals sent to [facility]. Aimee at [facility] confirmed portable 02 can be delivered bedside by 5pm. Patient made
aware and is agreeable.
[facility] referral accepted in Care Port.
[2025-04-07 14:58] VITALS: BP 148/62
[2025-04-07] MEDS: NSS IV (15:18)
--- NOTE | 2025-04-07 17:56 | PTCARENOTE ---
Pt. received from date night caregiver RN on 2 L of O2. Pt. with continuos complaints on how he does not need need it. This nurse tried to wean pt. off O2 continuously throughout the day. When pt. would walk to the bathroom without his O2, when he got back
in bed he was sating around 87-88. Sitting down pt. was sating in the low 90s. Continuously tried to wean however pt. would not tolerate. Home O2 eval set up before pt. was discharged. Pt. did not pass and qualified for 2 L of O2 at home. This pt.
began saying to this nurse 'this is all your fault', 'I don't know why you would do this to me', 'I do not need the oxygen' Pt. repeatedly educated on reasons he needs to wear the O2, and shown the stats on the portable pulse ox to prove to the pt.
the reasoning, however pt. repeatedly blamed this nurse. Tank arrived at pt's bedside around 1700. Discharge instruction given. Pt wheeled down by staff member in wheelchair connected to oxygen tank. PCT on floor wheeled pt. down to car. PCT stated
pt. threw oxygen tank in the trunk and stated 'I don't need this' and watched him walk back inside to visit his in the ICU.
== END 2025-04-07 17:19 | disposition home health service (06) | DRG 493 ==
LOC: 3 WEST ACU 19:52
PROVIDERS: Orthopaedic Surgery Hand Surgery; Physician Assistant; Student in an Organized Health Care Education/Training Program; ADMITTING PHYSICIAN Internal Medicine; ATTENDING PHYSICIAN Internal Medicine; EMERGENCY PHYSICIAN Emergency Medicine; FAMILY PHYSICIAN Internal Medicine Geriatric Medicine; OTHER PHYSICIAN Physician Assistant
PROC: 0PSG04Z Reposition Left Humeral Shaft with Internal Fixation Device, Open Approach (ICD-10-PCS; 2025-04-06)
DX: M84.522A Pathological fracture in neoplastic disease, left humerus, initial encounter for fracture (principal); C34.90 Malignant neoplasm of unspecified part of unspecified bronchus or lung; C79.51 Secondary malignant neoplasm of bone; C79.31 Secondary malignant neoplasm of brain; Z87.891 Personal history of nicotine dependence; I45.10 Unspecified right bundle-branch block; Z79.899 Other long term (current) drug therapy
CPT/HCPCS: 29105; 73060; 76000; 80048; 80053; 85014; 85018; 85025; 93005; 96374; 96375; 97162; 97167; 99152; 99285

== ENCOUNTER → 2025-04-14 11:54 | Outpatient (REF) | payer OTHER, SELFPAY ==
[2025-04-14 12:58] LABS: % Basophils 0.4 % (0-2); % Eosinophils 1.7 % (0-6); % Immature Granulocytes 1.1 % (0-0.5); % Lymphocytes 11.3 % (20.5-51.1); % Monocytes 6.9 % (1.7-9.3); % Neutrophils 78.6 % (42.2-75.2); Absolute Eosinophils 0.1 10^3/uL (0-0.7); Absolute Immature Granulocytes 0.1 10^3/uL (0-0.05); Absolute Lymphocytes 0.6 10^3/uL (1.2-3.4); Absolute Monocytes 0.4 10^3/uL (0.1-0.6); Absolute Neutrophils 4.2 10^3/uL (1.4-6.5); Hematocrit 35.9 % (39.0-52.0); Hemoglobin 11.5 g/dL (13.0-18.0); Mean Corpuscular Hgb 29.8 pg (27.0-31.0); Mean Platelet Volume 9.7 fL (7.4-10.4); Nucleated Red Blood Cells % 0 % (-); Platelet Count 225 10^3/uL (130-400); Red Blood Cell Count 3.86 10^6/uL (4.70-6.10); Red Cell Dist. Width 12.8 % (11.5-14.5); White Blood Cell Count 5.3 10^3/uL (4.8-10.8)
[2025-04-14 13:22] LABS: ALT (SGPT) 12 U/L (0-50); AST (SGOT) 17 U/L (17-59); Albumin 3.7 g/dl (3.5-5.0); Alkaline Phosphatase 91 U/L (38-126); Blood Urea Nitrogen 17 mg/dl (9-20); Calcium 9.2 mg/dl (8.4-10.2); Carbon Dioxide 28 mmol/L (22-30); Chloride 109 mmol/L (98-107); Glucose 117 mg/dl (70-99); Potassium 3.5 mmol/L (3.5-5.1); Sodium 143 mmol/L (135-145); Total Bilirubin 0.6 mg/dl (0.2-1.3); Total Protein 6.1 g/dl (6.3-8.2); eGFR > 60.00
[2025-04-14 13:51] LABS: TSH 0.94 uIU/ml (0.47-4.68)
== END ==
LOC: REG 11:54
PROVIDERS: ATTENDING PHYSICIAN Internal Medicine Hematology & Oncology; FAMILY PHYSICIAN Internal Medicine
DX: C34.11 Malignant neoplasm of upper lobe, right bronchus or lung (principal); C79.31 Secondary malignant neoplasm of brain
CPT/HCPCS: 36415; 80053; 84443; 85025

== ENCOUNTER → 2025-04-27 09:19 | Outpatient (REF) | payer OTHER, SELFPAY ==
[2025-04-27 10:42] LABS: % Basophils 0.1 % (0-2); % Eosinophils 0.5 % (0-6); % Immature Granulocytes 0.4 % (0-0.5); % Lymphocytes 4.9 % (20.5-51.1); % Monocytes 0.8 % (1.7-9.3); % Neutrophils 93.3 % (42.2-75.2); Absolute Lymphocytes 0.4 10^3/uL (1.2-3.4); Absolute Monocytes 0.1 10^3/uL (0.1-0.6); Absolute Neutrophils 7.2 10^3/uL (1.4-6.5); Hematocrit 33.4 % (39.0-52.0); Hemoglobin 10.7 g/dL (13.0-18.0); Mean Corpuscular Hgb 29.7 pg (27.0-31.0); Mean Corpuscular Volume 92.8 fL (80.0-94.0); Mean Platelet Volume 10.1 fL (7.4-10.4); Nucleated Red Blood Cells % 0 % (-); Platelet Count 173 10^3/uL (130-400); Red Cell Dist. Width 12.8 % (11.5-14.5); White Blood Cell Count 7.8 10^3/uL (4.8-10.8)
[2025-04-27 11:31] LABS: ALT (SGPT) 12 U/L (0-50); AST (SGOT) 17 U/L (17-59); Albumin 3.6 g/dl (3.5-5.0); Alkaline Phosphatase 90 U/L (38-126); Blood Urea Nitrogen 14 mg/dl (9-20); Calcium 8.7 mg/dl (8.4-10.2); Carbon Dioxide 29 mmol/L (22-30); Chloride 103 mmol/L (98-107); Glucose 105 mg/dl (70-99); Potassium 3.8 mmol/L (3.5-5.1); Sodium 137 mmol/L (135-145); Total Bilirubin 0.8 mg/dl (0.2-1.3); Total Protein 6.1 g/dl (6.3-8.2); eGFR > 60.00
[2025-04-27 12:02] LABS: TSH 1.38 uIU/ml (0.47-4.68)
== END ==
LOC: REG 09:19
PROVIDERS: ATTENDING PHYSICIAN Internal Medicine Hematology & Oncology; FAMILY PHYSICIAN Internal Medicine
DX: C34.11 Malignant neoplasm of upper lobe, right bronchus or lung (principal); C79.31 Secondary malignant neoplasm of brain
CPT/HCPCS: 36415; 80053; 84443; 85025

== ENCOUNTER → 2025-05-06 09:59 | Outpatient (REF) | payer OTHER, SELFPAY ==
[2025-05-06 11:38] LABS: % Basophils 0.4 % (0-2); % Eosinophils 1.6 % (0-6); % Immature Granulocytes 0.8 % (0-0.5); % Lymphocytes 17.3 % (20.5-51.1); % Monocytes 12.1 % (1.7-9.3); % Neutrophils 67.8 % (42.2-75.2); Absolute Lymphocytes 0.4 10^3/uL (1.2-3.4); Absolute Monocytes 0.3 10^3/uL (0.1-0.6); Absolute Neutrophils 1.7 10^3/uL (1.4-6.5); Hematocrit 31.1 % (39.0-52.0); Hemoglobin 10.1 g/dL (13.0-18.0); Mean Corp Hgb Conc. 32.5 g/dL (33.0-37.0); Mean Corpuscular Hgb 29.4 pg (27.0-31.0); Mean Corpuscular Volume 90.4 fL (80.0-94.0); Mean Platelet Volume 9.5 fL (7.4-10.4); Nucleated Red Blood Cells % 0 % (-); Platelet Count 132 10^3/uL (130-400); Red Blood Cell Count 3.44 10^6/uL (4.70-6.10); Red Cell Dist. Width 12.8 % (11.5-14.5); White Blood Cell Count 2.5 10^3/uL (4.8-10.8)
== END ==
LOC: REG 09:59
PROVIDERS: ATTENDING PHYSICIAN Internal Medicine Hematology & Oncology; FAMILY PHYSICIAN Internal Medicine
DX: C34.11 Malignant neoplasm of upper lobe, right bronchus or lung (principal); C79.31 Secondary malignant neoplasm of brain
CPT/HCPCS: 36415; 85025

== ENCOUNTER → 2025-05-11 14:01 | Outpatient (REF) | payer OTHER, SELFPAY | LOC: RAD 14:01 | PROVIDERS: ATTENDING PHYSICIAN Radiology Radiation Oncology; FAMILY PHYSICIAN Internal Medicine; REFERRING PHYSICIAN Family Medicine Geriatric Medicine | DX: R90.89 Other abnormal findings on diagnostic imaging of central nervous system (principal); C79.31 Secondary malignant neoplasm of brain; C79.49 Secondary malignant neoplasm of other parts of nervous system | CPT/HCPCS: 70496; 70498; Q9967 ==

== ENCOUNTER → 2025-05-18 12:04 | Outpatient (REF) | payer OTHER, SELFPAY ==
[2025-05-18 13:46] LABS: Hematocrit 33.4 % (39.0-52.0); Hemoglobin 10.4 g/dL (13.0-18.0); Mean Corp Hgb Conc. 31.1 g/dL (33.0-37.0); Mean Corpuscular Hgb 28.7 pg (27.0-31.0); Mean Platelet Volume 9.7 fL (7.4-10.4); Platelet Count 188 10^3/uL (130-400); Red Blood Cell Count 3.63 10^6/uL (4.70-6.10); White Blood Cell Count 30.9 10^3/uL (4.8-10.8)
[2025-05-18 14:03] LABS: Absolute Neutrophils -Man Diff 24.1 10^3/uL (1.4-6.5); Anisocytosis Slight; Band Neutrophils 0 % (0-3); Hypochromasia 1+; Lymphocytes 6 % (20-51); Macrocytosis Few; Metamyelocytes 2 % (-); Monocytes 7 % (2-9); Myelocytes 7 % (-); Normal RBC Morphology No; Platelets Checked Yes; Segmented Neutrophils 78 % (42-75); Total Cells Counted 100
[2025-05-18 14:20] LABS: ALT (SGPT) 13 U/L (0-50); AST (SGOT) 20 U/L (17-59); Albumin 3.2 g/dl (3.5-5.0); Alkaline Phosphatase 239 U/L (38-126); Blood Urea Nitrogen 12 mg/dl (9-20); Calcium 8.4 mg/dl (8.4-10.2); Carbon Dioxide 31 mmol/L (22-30); Chloride 105 mmol/L (98-107); Glucose 76 mg/dl (70-99); Sodium 143 mmol/L (135-145); Total Bilirubin 0.5 mg/dl (0.2-1.3); Total Protein 5.6 g/dl (6.3-8.2); eGFR > 60.00
[2025-05-18 14:25] LABS: TSH 0.92 uIU/ml (0.47-4.68)
== END ==
LOC: REG 12:04
PROVIDERS: ATTENDING PHYSICIAN Internal Medicine Hematology & Oncology; FAMILY PHYSICIAN Internal Medicine
DX: C34.11 Malignant neoplasm of upper lobe, right bronchus or lung (principal); C79.31 Secondary malignant neoplasm of brain
CPT/HCPCS: 36415; 80053; 84443; 85025

== ENCOUNTER → 2025-05-21 14:22 | Outpatient (REF) | payer OTHER, SELFPAY ==
[2025-05-21 14:59] LABS: ALT (SGPT) 11 U/L (0-50); AST (SGOT) 18 U/L (17-59); Albumin 3.1 g/dl (3.5-5.0); Alkaline Phosphatase 190 U/L (38-126); Blood Urea Nitrogen 9 mg/dl (9-20); Calcium 8.4 mg/dl (8.4-10.2); Carbon Dioxide 30 mmol/L (22-30); Chloride 106 mmol/L (98-107); Glucose 82 mg/dl (70-99); Potassium 3.4 mmol/L (3.5-5.1); Sodium 140 mmol/L (135-145); Total Bilirubin 0.4 mg/dl (0.2-1.3); Total Protein 5.3 g/dl (6.3-8.2); eGFR > 60.00
== END ==
LOC: OIDL 14:22
PROVIDERS: ATTENDING PHYSICIAN Internal Medicine Hematology & Oncology
DX: C34.11 Malignant neoplasm of upper lobe, right bronchus or lung (principal); C79.31 Secondary malignant neoplasm of brain
CPT/HCPCS: 80053

== ENCOUNTER → 2025-05-26 11:51 | Outpatient (REF) | payer OTHER, SELFPAY ==
[2025-05-26 12:58] LABS: Hematocrit 29.5 % (39.0-52.0); Hemoglobin 9.0 g/dL (13.0-18.0); Mean Corp Hgb Conc. 30.5 g/dL (33.0-37.0); Mean Corpuscular Volume 93.4 fL (80.0-94.0); Nucleated Red Blood Cells % 0 % (-); Platelet Count 308 10^3/uL (130-400); Red Cell Dist. Width 16.0 % (11.5-14.5)
[2025-05-26 13:23] LABS: ALT (SGPT) 13 U/L (0-50); AST (SGOT) 19 U/L (17-59); Albumin 3.1 g/dl (3.5-5.0); Alkaline Phosphatase 143 U/L (38-126); Blood Urea Nitrogen 12 mg/dl (9-20); Calcium 8.6 mg/dl (8.4-10.2); Carbon Dioxide 33 mmol/L (22-30); Chloride 101 mmol/L (98-107); Glucose 104 mg/dl (70-99); Potassium 4.4 mmol/L (3.5-5.1); Sodium 137 mmol/L (135-145); Total Protein 5.6 g/dl (6.3-8.2); eGFR > 60.00
[2025-05-26 13:52] LABS: TSH 0.54 uIU/ml (0.47-4.68)
== END ==
LOC: REG 11:51
PROVIDERS: ATTENDING PHYSICIAN Internal Medicine Hematology & Oncology; FAMILY PHYSICIAN Internal Medicine
DX: C34.11 Malignant neoplasm of upper lobe, right bronchus or lung (principal); C79.31 Secondary malignant neoplasm of brain
CPT/HCPCS: 36415; 80053; 84443; 85025

== ENCOUNTER → 2025-06-03 13:03 | Outpatient (REF) | payer OTHER, SELFPAY ==
[2025-06-03 13:50] LABS: Hematocrit 31.4 % (39.0-52.0); Hemoglobin 9.6 g/dL (13.0-18.0); Mean Corp Hgb Conc. 30.6 g/dL (33.0-37.0); Mean Corpuscular Volume 94.0 fL (80.0-94.0); Nucleated Red Blood Cells % 0 % (-); Platelet Count 187 10^3/uL (130-400); Red Cell Dist. Width 16.9 % (11.5-14.5)
[2025-06-03 14:17] LABS: ALT (SGPT) 15 U/L (0-50); AST (SGOT) 16 U/L (17-59); Albumin 3.4 g/dl (3.5-5.0); Alkaline Phosphatase 109 U/L (38-126); Blood Urea Nitrogen 18 mg/dl (9-20); Calcium 8.5 mg/dl (8.4-10.2); Carbon Dioxide 32 mmol/L (22-30); Chloride 102 mmol/L (98-107); Glucose 117 mg/dl (70-99); Potassium 3.8 mmol/L (3.5-5.1); Sodium 138 mmol/L (135-145); Total Protein 5.7 g/dl (6.3-8.2); eGFR > 60.00
[2025-06-03 14:46] LABS: TSH 0.88 uIU/ml (0.47-4.68)
== END ==
LOC: REG 13:03
PROVIDERS: ATTENDING PHYSICIAN Internal Medicine Hematology & Oncology; FAMILY PHYSICIAN Internal Medicine
DX: C34.11 Malignant neoplasm of upper lobe, right bronchus or lung (principal); C79.31 Secondary malignant neoplasm of brain
CPT/HCPCS: 36415; 80053; 84443; 85025

== ENCOUNTER → 2025-06-08 15:46 | Outpatient (REF) | payer OTHER, SELFPAY ==
[2025-06-08 15:42] LABS: Iron 21 ug/dl (49-181)
[2025-06-08 15:52] LABS: Total Iron Binding Capacity 277 ug/dl (261-462)
[2025-06-08 16:19] LABS: Ferritin 193.0 ng/ml (17.9-464.0)
== END ==
LOC: OIDL 15:46
PROVIDERS: ATTENDING PHYSICIAN Nurse Practitioner Primary Care
DX: C34.11 Malignant neoplasm of upper lobe, right bronchus or lung (principal); C79.31 Secondary malignant neoplasm of brain
CPT/HCPCS: 82728; 83540; 83550

== ENCOUNTER → 2025-06-19 07:14 | Outpatient (REF) | payer OTHER, SELFPAY | LOC: MRI 07:14 | PROVIDERS: ATTENDING PHYSICIAN Family Medicine Geriatric Medicine; FAMILY PHYSICIAN Internal Medicine | DX: C79.31 Secondary malignant neoplasm of brain (principal); C79.49 Secondary malignant neoplasm of other parts of nervous system; R90.89 Other abnormal findings on diagnostic imaging of central nervous system | CPT/HCPCS: 70553; A9575 ==

== ENCOUNTER → 2025-06-21 12:10 | Outpatient (REF) | payer OTHER, SELFPAY ==
[2025-06-21 11:53] LABS: Hematocrit 35.2 % (39.0-52.0); Hemoglobin 10.9 g/dL (13.0-18.0); Mean Corp Hgb Conc. 31.0 g/dL (33.0-37.0); Mean Corpuscular Volume 94.9 fL (80.0-94.0); Platelet Count 257 10^3/uL (130-400); Red Cell Dist. Width 19.9 % (11.5-14.5)
[2025-06-21 12:32] LABS: ALT (SGPT) < 10 U/L (0-50); AST (SGOT) 17 U/L (17-59); Albumin 3.8 g/dl (3.5-5.0); Alkaline Phosphatase 150 U/L (38-126); Blood Urea Nitrogen 10 mg/dl (9-20); Calcium 9.1 mg/dl (8.4-10.2); Carbon Dioxide 31 mmol/L (22-30); Chloride 101 mmol/L (98-107); Glucose 95 mg/dl (70-99); Potassium 4.2 mmol/L (3.5-5.1); Sodium 137 mmol/L (135-145); Total Protein 6.3 g/dl (6.3-8.2); eGFR > 60.00
== END ==
LOC: OIDL 12:10
PROVIDERS: ATTENDING PHYSICIAN Internal Medicine Hematology & Oncology
DX: C34.11 Malignant neoplasm of upper lobe, right bronchus or lung (principal); C79.31 Secondary malignant neoplasm of brain
CPT/HCPCS: 80053; 84443; 85025

== ENCOUNTER → 2025-06-24 10:00 | Outpatient (REF) | payer OTHER, SELFPAY ==
[2025-06-24 10:29] LABS: Hematocrit 33.1 % (39.0-52.0); Hemoglobin 10.3 g/dL (13.0-18.0); Mean Corp Hgb Conc. 31.1 g/dL (33.0-37.0); Mean Corpuscular Volume 94.8 fL (80.0-94.0); Nucleated Red Blood Cells % 0 % (-); Platelet Count 361 10^3/uL (130-400); Red Cell Dist. Width 19.9 % (11.5-14.5)
[2025-06-24 11:18] LABS: ALT (SGPT) 10 U/L (0-50); AST (SGOT) 16 U/L (17-59); Albumin 3.7 g/dl (3.5-5.0); Alkaline Phosphatase 99 U/L (38-126); Blood Urea Nitrogen 16 mg/dl (9-20); Calcium 8.9 mg/dl (8.4-10.2); Carbon Dioxide 32 mmol/L (22-30); Chloride 100 mmol/L (98-107); Glucose 112 mg/dl (70-99); Potassium 4.1 mmol/L (3.5-5.1); Sodium 139 mmol/L (135-145); Total Protein 6.0 g/dl (6.3-8.2); eGFR > 60.00
[2025-06-24 11:47] LABS: TSH 1.06 uIU/ml (0.47-4.68)
== END ==
LOC: REG 10:00
PROVIDERS: ATTENDING PHYSICIAN Internal Medicine Hematology & Oncology; FAMILY PHYSICIAN Internal Medicine
DX: C34.11 Malignant neoplasm of upper lobe, right bronchus or lung (principal); C79.31 Secondary malignant neoplasm of brain
CPT/HCPCS: 36415; 80053; 84443; 85025

== ENCOUNTER → 2025-06-28 13:20 | Outpatient (REF) | payer OTHER, SELFPAY ==
[2025-06-28 13:42] LABS: Hematocrit 35.4 % (39.0-52.0); Hemoglobin 11.2 g/dL (13.0-18.0); Mean Corp Hgb Conc. 31.6 g/dL (33.0-37.0); Mean Corpuscular Volume 95.9 fL (80.0-94.0); Platelet Count 401 10^3/uL (130-400); Red Cell Dist. Width 18.5 % (11.5-14.5)
[2025-06-28 14:35] LABS: ALT (SGPT) 10 U/L (0-50); AST (SGOT) 18 U/L (17-59); Albumin 4.1 g/dl (3.5-5.0); Alkaline Phosphatase 113 U/L (38-126); Blood Urea Nitrogen 12 mg/dl (9-20); Calcium 9.0 mg/dl (8.4-10.2); Carbon Dioxide 31 mmol/L (22-30); Chloride 102 mmol/L (98-107); Glucose 140 mg/dl (70-99); Potassium 4.2 mmol/L (3.5-5.1); Sodium 138 mmol/L (135-145); Total Protein 6.6 g/dl (6.3-8.2); eGFR > 60.00
== END ==
LOC: OIDL 13:20
PROVIDERS: ATTENDING PHYSICIAN Internal Medicine Hematology & Oncology; FAMILY PHYSICIAN Internal Medicine
DX: C34.11 Malignant neoplasm of upper lobe, right bronchus or lung (principal); C79.31 Secondary malignant neoplasm of brain
CPT/HCPCS: 36415; 80053; 85025

== ENCOUNTER → 2025-07-05 10:46 | Outpatient (REF) | payer OTHER, SELFPAY ==
[2025-07-05 11:25] LABS: Hematocrit 32.6 % (39.0-52.0); Hemoglobin 10.2 g/dL (13.0-18.0); Mean Corp Hgb Conc. 31.3 g/dL (33.0-37.0); Mean Corpuscular Volume 96.7 fL (80.0-94.0); Platelet Count 137 10^3/uL (130-400); Red Cell Dist. Width 18.0 % (11.5-14.5)
[2025-07-05 13:16] LABS: ALT (SGPT) 14 U/L (0-50); AST (SGOT) 18 U/L (17-59); Albumin 3.9 g/dl (3.5-5.0); Alkaline Phosphatase 100 U/L (38-126); Blood Urea Nitrogen 14 mg/dl (9-20); Calcium 9.1 mg/dl (8.4-10.2); Carbon Dioxide 31 mmol/L (22-30); Chloride 104 mmol/L (98-107); Glucose 91 mg/dl (70-99); Potassium 4.6 mmol/L (3.5-5.1); Sodium 139 mmol/L (135-145); Total Protein 6.2 g/dl (6.3-8.2); eGFR > 60.00
[2025-07-05 13:46] LABS: TSH 0.62 uIU/ml (0.47-4.68)
== END ==
LOC: OIDL 10:46
PROVIDERS: ATTENDING PHYSICIAN Internal Medicine Hematology & Oncology; FAMILY PHYSICIAN Internal Medicine
DX: C34.11 Malignant neoplasm of upper lobe, right bronchus or lung (principal); C79.31 Secondary malignant neoplasm of brain
CPT/HCPCS: 36415; 80053; 84443; 85025

== ENCOUNTER → 2025-07-12 09:19 | Outpatient (REF) | payer OTHER, SELFPAY ==
[2025-07-12 10:17] LABS: Hematocrit 30.8 % (39.0-52.0); Hemoglobin 9.6 g/dL (13.0-18.0); Mean Corp Hgb Conc. 31.2 g/dL (33.0-37.0); Mean Corpuscular Volume 99.4 fL (80.0-94.0); Platelet Count 104 10^3/uL (130-400); Red Cell Dist. Width 19.0 % (11.5-14.5)
[2025-07-12 10:34] LABS: ALT (SGPT) 11 U/L (0-50); AST (SGOT) 15 U/L (17-59); Albumin 3.6 g/dl (3.5-5.0); Alkaline Phosphatase 140 U/L (38-126); Blood Urea Nitrogen 13 mg/dl (9-20); Calcium 8.7 mg/dl (8.4-10.2); Carbon Dioxide 31 mmol/L (22-30); Chloride 104 mmol/L (98-107); Glucose 125 mg/dl (70-99); Potassium 3.4 mmol/L (3.5-5.1); Sodium 139 mmol/L (135-145); Total Protein 5.7 g/dl (6.3-8.2); eGFR > 60.00
[2025-07-12 11:01] LABS: TSH 0.71 uIU/ml (0.47-4.68)
[2025-07-12 11:42] LABS: Nucleated Red Blood Cells % 0.2 % (-)
== END ==
LOC: REG 09:19
PROVIDERS: ATTENDING PHYSICIAN Internal Medicine Hematology & Oncology; FAMILY PHYSICIAN Internal Medicine
DX: C34.11 Malignant neoplasm of upper lobe, right bronchus or lung (principal); C79.31 Secondary malignant neoplasm of brain
CPT/HCPCS: 36415; 80053; 84443; 85025

== ENCOUNTER → 2025-07-19 09:50 | Outpatient (REF) | payer OTHER, SELFPAY ==
[2025-07-19 10:59] LABS: Hematocrit 33.2 % (39.0-52.0); Hemoglobin 10.2 g/dL (13.0-18.0); Mean Corp Hgb Conc. 30.7 g/dL (33.0-37.0); Mean Corpuscular Volume 100.3 fL (80.0-94.0); Nucleated Red Blood Cells % 0 % (-); Platelet Count 318 10^3/uL (130-400); Red Cell Dist. Width 19.0 % (11.5-14.5)
[2025-07-19 11:38] LABS: ALT (SGPT) < 10 U/L (0-50); AST (SGOT) 14 U/L (17-59); Albumin 3.5 g/dl (3.5-5.0); Alkaline Phosphatase 143 U/L (38-126); Blood Urea Nitrogen 9 mg/dl (9-20); Calcium 8.6 mg/dl (8.4-10.2); Carbon Dioxide 31 mmol/L (22-30); Chloride 105 mmol/L (98-107); Glucose 81 mg/dl (70-99); Potassium 3.8 mmol/L (3.5-5.1); Sodium 139 mmol/L (135-145); Total Protein 5.7 g/dl (6.3-8.2); eGFR > 60.00
[2025-07-19 12:00] LABS: TSH 0.43 uIU/ml (0.47-4.68)
== END ==
LOC: REG 09:50
PROVIDERS: ATTENDING PHYSICIAN Internal Medicine Hematology & Oncology; FAMILY PHYSICIAN Internal Medicine
DX: C34.11 Malignant neoplasm of upper lobe, right bronchus or lung (principal); C79.31 Secondary malignant neoplasm of brain
CPT/HCPCS: 36415; 80053; 84443; 85025

== ENCOUNTER → 2025-07-28 09:42 | Outpatient (REF) | payer OTHER, SELFPAY ==
[2025-07-28 10:06] LABS: Hematocrit 32.7 % (39.0-52.0); Hemoglobin 10.1 g/dL (13.0-18.0); Mean Corp Hgb Conc. 30.9 g/dL (33.0-37.0); Mean Corpuscular Volume 100.9 fL (80.0-94.0); Platelet Count 276 10^3/uL (130-400); Red Cell Dist. Width 16.1 % (11.5-14.5)
[2025-07-28 11:41] LABS: ALT (SGPT) 17 U/L (0-50); AST (SGOT) 18 U/L (17-59); Albumin 3.6 g/dl (3.5-5.0); Alkaline Phosphatase 99 U/L (38-126); Blood Urea Nitrogen 14 mg/dl (9-20); Calcium 9.1 mg/dl (8.4-10.2); Carbon Dioxide 30 mmol/L (22-30); Chloride 104 mmol/L (98-107); Glucose 91 mg/dl (70-99); Potassium 4.9 mmol/L (3.5-5.1); Sodium 138 mmol/L (135-145); Total Protein 5.9 g/dl (6.3-8.2); eGFR > 60.00
[2025-07-28 12:10] LABS: TSH 0.69 uIU/ml (0.47-4.68)
== END ==
LOC: OIDL 09:42
PROVIDERS: ATTENDING PHYSICIAN Internal Medicine Hematology & Oncology; FAMILY PHYSICIAN Internal Medicine
DX: C34.11 Malignant neoplasm of upper lobe, right bronchus or lung (principal); C79.31 Secondary malignant neoplasm of brain
CPT/HCPCS: 36415; 80053; 84443; 85025

== ENCOUNTER → 2025-08-04 09:46 | Outpatient (REF) | payer OTHER, SELFPAY ==
[2025-08-04 10:25] LABS: Hematocrit 33.4 % (39.0-52.0); Hemoglobin 10.4 g/dL (13.0-18.0); Mean Corp Hgb Conc. 31.1 g/dL (33.0-37.0); Mean Corpuscular Volume 99.4 fL (80.0-94.0); Platelet Count 171 10^3/uL (130-400); Red Cell Dist. Width 14.9 % (11.5-14.5)
[2025-08-04 11:32] LABS: ALT (SGPT) 19 U/L (0-50); AST (SGOT) 19 U/L (17-59); Albumin 3.8 g/dl (3.5-5.0); Alkaline Phosphatase 85 U/L (38-126); Blood Urea Nitrogen 11 mg/dl (9-20); Calcium 8.9 mg/dl (8.4-10.2); Carbon Dioxide 30 mmol/L (22-30); Chloride 104 mmol/L (98-107); Glucose 91 mg/dl (70-99); Potassium 4.9 mmol/L (3.5-5.1); Sodium 137 mmol/L (135-145); Total Protein 6.0 g/dl (6.3-8.2); eGFR > 60.00
[2025-08-04 12:02] LABS: TSH 0.65 uIU/ml (0.47-4.68)
== END ==
LOC: OIDL 09:46
PROVIDERS: ATTENDING PHYSICIAN Internal Medicine Hematology & Oncology; FAMILY PHYSICIAN Internal Medicine
DX: C34.11 Malignant neoplasm of upper lobe, right bronchus or lung (principal); C79.31 Secondary malignant neoplasm of brain
CPT/HCPCS: 36415; 80053; 84443; 85025

== ENCOUNTER → 2025-08-18 10:08 | Outpatient (REF) | payer OTHER, SELFPAY ==
[2025-08-18 10:36] LABS: Hematocrit 37.7 % (39.0-52.0); Hemoglobin 11.5 g/dL (13.0-18.0); Mean Corp Hgb Conc. 30.5 g/dL (33.0-37.0); Mean Corpuscular Volume 102.7 fL (80.0-94.0); Platelet Count 254 10^3/uL (130-400); Red Cell Dist. Width 15.7 % (11.5-14.5)
[2025-08-18 11:56] LABS: ALT (SGPT) < 10 U/L (0-50); AST (SGOT) 14 U/L (17-59); Albumin 3.8 g/dl (3.5-5.0); Alkaline Phosphatase 141 U/L (38-126); Blood Urea Nitrogen 13 mg/dl (9-20); Calcium 9.2 mg/dl (8.4-10.2); Carbon Dioxide 33 mmol/L (22-30); Chloride 101 mmol/L (98-107); Glucose 70 mg/dl (70-99); Potassium 4.2 mmol/L (3.5-5.1); Sodium 139 mmol/L (135-145); Total Protein 6.2 g/dl (6.3-8.2); eGFR > 60.00
[2025-08-18 12:26] LABS: TSH 0.60 uIU/ml (0.47-4.68)
== END ==
LOC: OIDL 10:08
PROVIDERS: ATTENDING PHYSICIAN Internal Medicine Hematology & Oncology; FAMILY PHYSICIAN Internal Medicine
DX: C34.11 Malignant neoplasm of upper lobe, right bronchus or lung (principal)
CPT/HCPCS: 36415; 80053; 84443; 85025

== ENCOUNTER → 2025-08-25 09:45 | Outpatient (REF) | payer OTHER, SELFPAY ==
[2025-08-25 10:08] LABS: Hematocrit 35.3 % (39.0-52.0); Hemoglobin 10.8 g/dL (13.0-18.0); Mean Corp Hgb Conc. 30.6 g/dL (33.0-37.0); Mean Corpuscular Volume 102.0 fL (80.0-94.0); Platelet Count 372 10^3/uL (130-400); Red Cell Dist. Width 14.4 % (11.5-14.5)
[2025-08-25 10:54] LABS: ALT (SGPT) 17 U/L (0-50); AST (SGOT) 19 U/L (17-59); Albumin 3.7 g/dl (3.5-5.0); Alkaline Phosphatase 96 U/L (38-126); Blood Urea Nitrogen 11 mg/dl (9-20); Calcium 9.3 mg/dl (8.4-10.2); Carbon Dioxide 33 mmol/L (22-30); Chloride 102 mmol/L (98-107); Glucose 89 mg/dl (70-99); Potassium 4.2 mmol/L (3.5-5.1); Sodium 139 mmol/L (135-145); Total Protein 6.0 g/dl (6.3-8.2); eGFR > 60.00
[2025-08-25 11:25] LABS: TSH 0.75 uIU/ml (0.47-4.68)
== END ==
LOC: OIDL 09:45
PROVIDERS: ATTENDING PHYSICIAN Internal Medicine Hematology & Oncology; FAMILY PHYSICIAN Internal Medicine
DX: C34.11 Malignant neoplasm of upper lobe, right bronchus or lung (principal)
CPT/HCPCS: 36415; 80053; 84443; 85025

== ENCOUNTER → 2025-09-01 09:36 | Outpatient (REF) | payer OTHER, SELFPAY ==
[2025-09-01 09:51] LABS: Hematocrit 34.5 % (39.0-52.0); Hemoglobin 10.5 g/dL (13.0-18.0); Mean Corp Hgb Conc. 30.4 g/dL (33.0-37.0); Mean Corpuscular Volume 101.5 fL (80.0-94.0); Platelet Count 131 10^3/uL (130-400); Red Cell Dist. Width 14.0 % (11.5-14.5)
[2025-09-01 11:18] LABS: ALT (SGPT) 16 U/L (0-50); AST (SGOT) 18 U/L (17-59); Albumin 3.7 g/dl (3.5-5.0); Alkaline Phosphatase 93 U/L (38-126); Blood Urea Nitrogen 14 mg/dl (9-20); Calcium 8.8 mg/dl (8.4-10.2); Carbon Dioxide 34 mmol/L (22-30); Chloride 105 mmol/L (98-107); Glucose 96 mg/dl (70-99); Potassium 3.8 mmol/L (3.5-5.1); Sodium 141 mmol/L (135-145); Total Protein 6.1 g/dl (6.3-8.2); eGFR > 60.00
[2025-09-01 11:46] LABS: TSH 0.67 uIU/ml (0.47-4.68)
== END ==
LOC: OIDL 09:36
PROVIDERS: ATTENDING PHYSICIAN Internal Medicine Hematology & Oncology; FAMILY PHYSICIAN Internal Medicine
DX: C34.11 Malignant neoplasm of upper lobe, right bronchus or lung (principal)
CPT/HCPCS: 36415; 80053; 84443; 85025

== ENCOUNTER → 2025-09-08 07:16 | Outpatient (REF) | payer OTHER, SELFPAY | LOC: PAVMRI 07:16 | PROVIDERS: ATTENDING PHYSICIAN Neurological Surgery; FAMILY PHYSICIAN Internal Medicine | DX: C79.31 Secondary malignant neoplasm of brain (principal) | CPT/HCPCS: 70553; A9575 ==

== ENCOUNTER → 2025-09-15 09:40 | Outpatient (REF) | payer OTHER, SELFPAY ==
[2025-09-15 09:52] LABS: Hematocrit 38.2 % (39.0-52.0); Hemoglobin 11.7 g/dL (13.0-18.0); Mean Corp Hgb Conc. 30.6 g/dL (33.0-37.0); Mean Corpuscular Volume 101.6 fL (80.0-94.0); Platelet Count 258 10^3/uL (130-400); Red Cell Dist. Width 15.3 % (11.5-14.5)
[2025-09-15 10:48] LABS: ALT (SGPT) < 10 U/L (0-50); AST (SGOT) 14 U/L (17-59); Albumin 3.9 g/dl (3.5-5.0); Alkaline Phosphatase 154 U/L (38-126); Blood Urea Nitrogen 8 mg/dl (9-20); Calcium 9.1 mg/dl (8.4-10.2); Carbon Dioxide 33 mmol/L (22-30); Chloride 102 mmol/L (98-107); Glucose 87 mg/dl (70-99); Potassium 3.8 mmol/L (3.5-5.1); Sodium 137 mmol/L (135-145); Total Protein 6.3 g/dl (6.3-8.2); eGFR > 60.00
== END ==
LOC: OIDL 09:40
PROVIDERS: ATTENDING PHYSICIAN Internal Medicine Hematology & Oncology; FAMILY PHYSICIAN Internal Medicine
DX: C34.11 Malignant neoplasm of upper lobe, right bronchus or lung (principal); C79.31 Secondary malignant neoplasm of brain; Z92.26 Personal history of immune checkpoint inhibitor therapy
CPT/HCPCS: 36415; 80053; 84443; 85025

== ENCOUNTER → 2025-09-22 09:33 | Outpatient (REF) | payer OTHER, SELFPAY ==
[2025-09-22 09:45] LABS: Hematocrit 34.5 % (39.0-52.0); Hemoglobin 10.6 g/dL (13.0-18.0); Mean Corp Hgb Conc. 30.7 g/dL (33.0-37.0); Mean Corpuscular Volume 101.8 fL (80.0-94.0); Platelet Count 378 10^3/uL (130-400); Red Cell Dist. Width 14.4 % (11.5-14.5)
[2025-09-22 10:49] LABS: ALT (SGPT) 12 U/L (0-50); AST (SGOT) 15 U/L (17-59); Albumin 3.7 g/dl (3.5-5.0); Alkaline Phosphatase 96 U/L (38-126); Blood Urea Nitrogen 13 mg/dl (9-20); Calcium 9.2 mg/dl (8.4-10.2); Carbon Dioxide 35 mmol/L (22-30); Chloride 103 mmol/L (98-107); Glucose 77 mg/dl (70-99); Potassium 4.6 mmol/L (3.5-5.1); Sodium 140 mmol/L (135-145); Total Protein 6.0 g/dl (6.3-8.2); eGFR > 60.00
[2025-09-22 11:19] LABS: TSH 0.82 uIU/ml (0.47-4.68)
== END ==
LOC: OIDL 09:33
PROVIDERS: ATTENDING PHYSICIAN Internal Medicine Hematology & Oncology; FAMILY PHYSICIAN Internal Medicine
DX: C34.11 Malignant neoplasm of upper lobe, right bronchus or lung (principal); C79.31 Secondary malignant neoplasm of brain; Z92.26 Personal history of immune checkpoint inhibitor therapy
CPT/HCPCS: 36415; 80053; 84443; 85025

== ENCOUNTER → 2025-09-29 09:41 | Outpatient (REF) | payer OTHER, SELFPAY ==
[2025-09-29 10:02] LABS: Hematocrit 36.1 % (39.0-52.0); Hemoglobin 11.2 g/dL (13.0-18.0); Mean Corp Hgb Conc. 31.0 g/dL (33.0-37.0); Mean Corpuscular Volume 98.1 fL (80.0-94.0); Platelet Count 154 10^3/uL (130-400); Red Cell Dist. Width 14.1 % (11.5-14.5)
[2025-09-29 10:49] LABS: ALT (SGPT) 12 U/L (0-50); AST (SGOT) 16 U/L (17-59); Albumin 4.1 g/dl (3.5-5.0); Alkaline Phosphatase 94 U/L (38-126); Blood Urea Nitrogen 9 mg/dl (9-20); Calcium 9.1 mg/dl (8.4-10.2); Carbon Dioxide 33 mmol/L (22-30); Chloride 102 mmol/L (98-107); Glucose 92 mg/dl (70-99); Potassium 4.5 mmol/L (3.5-5.1); Sodium 139 mmol/L (135-145); Total Protein 6.3 g/dl (6.3-8.2); eGFR > 60.00
[2025-09-29 11:12] LABS: TSH 0.84 uIU/ml (0.47-4.68)
== END ==
LOC: OIDL 09:41
PROVIDERS: ATTENDING PHYSICIAN Internal Medicine Hematology & Oncology; FAMILY PHYSICIAN Internal Medicine
DX: C34.11 Malignant neoplasm of upper lobe, right bronchus or lung (principal); C79.31 Secondary malignant neoplasm of brain; Z92.26 Personal history of immune checkpoint inhibitor therapy
CPT/HCPCS: 36415; 80053; 84443; 85025

== ENCOUNTER → 2025-10-06 10:06 | Outpatient (REF) | payer OTHER, SELFPAY ==
[2025-10-06 11:24] LABS: ALT (SGPT) 13 U/L (0-50); AST (SGOT) 21 U/L (17-59); Albumin 3.9 g/dl (3.5-5.0); Alkaline Phosphatase 160 U/L (38-126); Blood Urea Nitrogen 10 mg/dl (9-20); Calcium 9.2 mg/dl (8.4-10.2); Carbon Dioxide 32 mmol/L (22-30); Chloride 102 mmol/L (98-107); Glucose 85 mg/dl (70-99); Potassium 3.9 mmol/L (3.5-5.1); Sodium 137 mmol/L (135-145); Total Protein 6.2 g/dl (6.3-8.2); eGFR > 60.00
[2025-10-06 11:46] LABS: TSH 0.64 uIU/ml (0.47-4.68)
[2025-10-06 11:59] LABS: Hematocrit 35.4 % (39.0-52.0); Hemoglobin 11.0 g/dL (13.0-18.0); Mean Corp Hgb Conc. 31.1 g/dL (33.0-37.0); Mean Corpuscular Volume 98.3 fL (80.0-94.0); Platelet Count 120 10^3/uL (130-400); Red Cell Dist. Width 15.0 % (11.5-14.5)
[2025-10-06 12:50] LABS: Nucleated Red Blood Cells % 0.1 % (-)
== END ==
LOC: OIDL 10:06
PROVIDERS: ATTENDING PHYSICIAN Internal Medicine Hematology & Oncology; FAMILY PHYSICIAN Internal Medicine
DX: C34.11 Malignant neoplasm of upper lobe, right bronchus or lung (principal); C79.31 Secondary malignant neoplasm of brain; Z92.26 Personal history of immune checkpoint inhibitor therapy
CPT/HCPCS: 36415; 80053; 84443; 85025

== ENCOUNTER → 2025-10-14 07:21 | Outpatient (REF) | payer OTHER, SELFPAY | LOC: MRI 07:21 | PROVIDERS: ATTENDING PHYSICIAN Neurological Surgery; PRIMARYCARE PHYSICIAN Internal Medicine | DX: C79.31 Secondary malignant neoplasm of brain (principal) | CPT/HCPCS: 70553; A9575 ==

== ENCOUNTER → 2025-10-27 09:31 | Outpatient (REF) | payer OTHER, SELFPAY ==
[2025-10-27 09:42] LABS: Hematocrit 40.2 % (39.0-52.0); Hemoglobin 12.4 g/dL (13.0-18.0); Mean Corp Hgb Conc. 30.8 g/dL (33.0-37.0); Mean Corpuscular Volume 99.3 fL (80.0-94.0); Platelet Count 258 10^3/uL (130-400); Red Cell Dist. Width 13.8 % (11.5-14.5)
[2025-10-27 10:42] LABS: ALT (SGPT) < 10 U/L (0-50); AST (SGOT) 15 U/L (17-59); Albumin 4.1 g/dl (3.5-5.0); Alkaline Phosphatase 100 U/L (38-126); Blood Urea Nitrogen 11 mg/dl (9-20); Calcium 9.6 mg/dl (8.4-10.2); Carbon Dioxide 34 mmol/L (22-30); Chloride 102 mmol/L (98-107); Glucose 124 mg/dl (70-99); Potassium 4.5 mmol/L (3.5-5.1); Sodium 139 mmol/L (135-145); Total Protein 6.7 g/dl (6.3-8.2); eGFR > 60.00
[2025-10-27 11:07] LABS: TSH 0.20 uIU/ml (0.47-4.68)
== END ==
LOC: OIDL 09:31
PROVIDERS: ATTENDING PHYSICIAN Internal Medicine Hematology & Oncology; FAMILY PHYSICIAN Internal Medicine
DX: C34.11 Malignant neoplasm of upper lobe, right bronchus or lung (principal); C79.31 Secondary malignant neoplasm of brain; Z92.26 Personal history of immune checkpoint inhibitor therapy
CPT/HCPCS: 36415; 80053; 84439; 84443; 85025

== ENCOUNTER → 2025-11-10 09:29 | Outpatient (REF) | payer OTHER, SELFPAY ==
[2025-11-10 09:40] LABS: Hematocrit 46.7 % (39.0-52.0); Hemoglobin 14.3 g/dL (13.0-18.0); Mean Corp Hgb Conc. 30.6 g/dL (33.0-37.0); Mean Corpuscular Volume 100.6 fL (80.0-94.0); Platelet Count 142 10^3/uL (130-400); Red Cell Dist. Width 14.4 % (11.5-14.5)
[2025-11-10 10:58] LABS: ALT (SGPT) 21 U/L (0-50); AST (SGOT) 17 U/L (17-59); Albumin 4.5 g/dl (3.5-5.0); Alkaline Phosphatase 177 U/L (38-126); Blood Urea Nitrogen 18 mg/dl (9-20); Calcium 9.4 mg/dl (8.4-10.2); Carbon Dioxide 35 mmol/L (22-30); Chloride 95 mmol/L (98-107); Glucose 82 mg/dl (70-99); Potassium 4.8 mmol/L (3.5-5.1); Sodium 137 mmol/L (135-145); Total Protein 7.1 g/dl (6.3-8.2); eGFR > 60.00
[2025-11-10 11:11] LABS: TSH 0.37 uIU/ml (0.47-4.68)
== END ==
LOC: OIDL 09:29
PROVIDERS: ATTENDING PHYSICIAN Internal Medicine Hematology & Oncology; FAMILY PHYSICIAN Internal Medicine
DX: C34.11 Malignant neoplasm of upper lobe, right bronchus or lung (principal); C79.31 Secondary malignant neoplasm of brain; Z92.26 Personal history of immune checkpoint inhibitor therapy
CPT/HCPCS: 36415; 80053; 84443; 85025